=== PATIENT | male | born 1970 | race Caucasian/White ===

== ENCOUNTER 2016-11-25 13:35 | Emergency (ER) | payer BC, OTHER ==
[~2016-11-25] VITALS: Ht 177.8 cm; Wt 83.5 kg
[2016-11-25] MEDS ORDERED: PROPARACAINE OPHTH 0.5%, 15ML ONE (14:10)
[2016-11-25] MEDS ORDERED: FLUORESCEIN OPHTHALMIC 1 MG STRIP ONE (14:11)
[2016-11-25] MEDS ORDERED: KETOROLAC 30 MG/1 ML ONE (15:30)
[2016-11-25] MEDS ORDERED: METHOCARBAMOL 750 MG TABLET ONE (15:30)
[2016-11-25] MEDS ORDERED: SODIUM CHLORIDE 0.9% 1,000ML IVBOLUS ONE (15:30)
[2016-11-25 15:43] LABS: ASPARTATE AMINO TRANSFERASE 19 U/L (15-37); BLOOD UREA NITROGEN 10 mg/dL (7-18)
[2016-11-25 17:21] VITALS: BP 117/79
== END 2016-11-25 17:23 | disposition home or self-care (01) ==
LOC: ED 14:27
DX: H10.11 Acute atopic conjunctivitis, right eye (principal); E11.65 Type 2 diabetes mellitus with hyperglycemia; Z87.891 Personal history of nicotine dependence
CPT/HCPCS: 36415; 80053; 82010; 82962; 85025; 96360; 96361; 99285; J7030

== ENCOUNTER 2019-02-24 09:44 | Outpatient (CLI) | payer BC | END 2019-02-24 23:59 | disposition home or self-care (01) | LOC: CFH 09:44 | PROVIDERS: ATTEND Internal Medicine Cardiovascular Disease | DX: I35.0 Nonrheumatic aortic (valve) stenosis (principal); E11.9 Type 2 diabetes mellitus without complications | CPT/HCPCS: 93306 ==

== ENCOUNTER 2021-02-07 21:53 | Inpatient (IN) | payer BC, OTHER ==
[~2021-02-07] VITALS: Ht 177.8 cm; Wt 74.1 kg
--- NOTE | 2021-02-07 22:30 | NUR ---
TASK RN: PIV PLACED, LABS DRAWN AND SENT TO LAB WITH LAB SLIP. Addendum: 02/07/21 at 2242 by SABINE ONE SET BLOOD CX COLLECTED AND SENT TO LAB
--- NOTE | 2021-02-07 22:33 | NUR ---
TASK RN: PT PLACED ON 4L OXYGEN VIA NC. PT OXYGEN 91%. PT C/O NAUSEA, COUGH, REGULATING TEMP SINCE JANUARY 30. HX DM2, HTN, PT NOT TAKING MEDS AT THIS TIME, JUST GOT INSURANCE AGAIN. ERMD AT BEDSIDE FOR ASSESSMENT. REPORT TO PRIMARY RN.
[2021-02-07 22:40] LABS: BASOPHILS % (AUTO) 0 % (0-1); EOSINOPHILS % (AUTO) 0 % (1-7); LYMPHOCYTES % (AUTO) 6 % (22-44); MEAN CORPUSCULAR HEMOGLOBIN 30.2 pg (27.5-34.5); MEAN CORPUSCULAR HGB CONC 34.3 g/dL (33.2-36.2); MEAN PLATELET VOLUME 8.9 fL (7.4-10.4); MONOCYTES % (AUTO) 12 % (2-9); NEUTROPHILS % (AUTO) 82 % (42-75); PLATELET COUNT 154 x10^3/uL (130-400); RED CELL DISTRIBUTION WIDTH 12.4 % (9.4-14.8)
[2021-02-07] MEDS ORDERED: CEFTRIAXONE 1,000 MG in DEXTROSE 5% 50 ML IVPB ONE (23:00)
[2021-02-07] MEDS ORDERED: AZITHROMYCIN 500 MG in SODIUM CHLORIDE 0.9% 250 ML IVPB ONE (23:00)
--- NOTE | 2021-02-07 23:10 | NUR ---
Pt placed on Optiflow by RT, reports improvement of breathing while on respirory tx
[2021-02-07 23:18] LABS: ALBUMIN 2.9 g/dL (3.4-5.0); CALCIUM 8.4 mg/dL (8.5-10.1)
[2021-02-07 23:24] LABS: ALKALINE PHOSPHATASE 68 U/L (45-117); BILIRUBIN,TOTAL 0.8 mg/dL (0.2-1.0); CREATININE 1.63 mg/dL (0.7-1.3); TOTAL PROTEIN 7.8 g/dL (6.4-8.2); TROPONIN I < 0.015 ng/mL (0.000-0.045)
[2021-02-07 23:33] LABS: ALANINE AMINOTRANSFERASE 350 U/L (12-78); ANION GAP 8 mmol/L (5-15); CHLORIDE 96 mmol/L (98-107)
[2021-02-07] MEDS ORDERED: ONDANSETRON 2MG/ML, 2ML ONE (23:52)
[2021-02-08] MEDS ORDERED: ONDANSETRON 2MG/ML, 2ML IVPush ONE
[2021-02-08] MEDS ORDERED: NPH,100V5 SQ-INSULIN (00:25)
[2021-02-08] MEDS ORDERED: ALBUTEROL-IPRATROPIUM MDI INH INH PRN (00:30)
[2021-02-08] MEDS ORDERED: POLYETHYLENE GLYCOL 17 GM PACKET PO PRN (00:30)
[2021-02-08] MEDS ORDERED: ONDANSETRON 2MG/ML, 2ML IVPush PRN (00:30)
[2021-02-08] MEDS ORDERED: HYDROmorphone 2 MG/ML, 1ML IVPush PRN (00:30)
[2021-02-08] MEDS ORDERED: LABETALOL 5MG/ML, 20ML IVPush PRN (00:30)
--- NOTE | 2021-02-08 01:18 | NUR ---
report to [facility] CASTRO
[2021-02-08 02:04] VITALS: BP 143/77
[2021-02-08] MEDS ORDERED: INSULIN LISPRO 100 UNITS/ML, PEN SQ-INSULIN SCH (03:30)
[2021-02-08] MEDS: ACETAMINOPHEN 325 MG TABLET PO PRN ×2 (04:28→21:56)
[2021-02-08 05:31] LABS: BASOPHILS % (AUTO) 0 % (0-1); EOSINOPHILS % (AUTO) 0 % (1-7); LYMPHOCYTES % (AUTO) 8 % (22-44); MEAN CORPUSCULAR HEMOGLOBIN 30.2 pg (27.5-34.5); MEAN CORPUSCULAR HGB CONC 34.9 g/dL (33.2-36.2); MEAN PLATELET VOLUME 9.1 fL (7.4-10.4); MONOCYTES % (AUTO) 12 % (2-9); NEUTROPHILS % (AUTO) 80 % (42-75); PLATELET COUNT 142 x10^3/uL (130-400); RED CELL DISTRIBUTION WIDTH 12.1 % (9.4-14.8)
[2021-02-08 05:40] LABS: ANION GAP 6 mmol/L (5-15); CALCIUM 8.2 mg/dL (8.5-10.1); CHLORIDE 98 mmol/L (98-107)
[2021-02-08 05:42] LABS: CREATININE 1.44 mg/dL (0.7-1.3)
[2021-02-08 06:46] VITALS: BP 111/69
[2021-02-08] MEDS ORDERED: ALBUTEROL-IPRATROPIUM MDI INH INH SCH (09:00)
[2021-02-08] MEDS: INSULIN LISPRO 100 UNITS/ML, PEN SQ-INSULIN SCH ×4 (09:07→21:57)
[2021-02-08] MEDS: GUAIFENESIN/DM 200-20MG, 10ML UDC PO PRN (12:15)
[2021-02-08 12:30] VITALS: BP 129/73
[2021-02-08] MEDS ORDERED: DEXAMETHASONE 4 MG/ML, 1ML IVPush ONE (12:47)
[2021-02-08] MEDS ORDERED: methylPREDNISolone SOD SUCC 40 MG/ML IVPush SCH (15:00)
[2021-02-08] MEDS: ENOXAPARIN 40 MG/0.4 ML SQ SCH (16:26)
[2021-02-08 20:12] VITALS: BP 119/72
[2021-02-08] MEDS: MELATONIN 5 MG TABLET PO PRN (21:56)
[2021-02-08] MEDS: CEFTRIAXONE 2 GM in DEXTROSE 5% 50 ML IVPB SCH (23:22)
[2021-02-08] MEDS: AZITHROMYCIN 500 MG TABLET PO SCH (23:22)
[2021-02-09 00:45] VITALS: BP 116/73
[2021-02-09 05:42] LABS: HCT (SEDRATE) 38.9 % (39.2-51.8)
[2021-02-09 05:43] LABS: BASOPHILS % (AUTO) 0 % (0-1); EOSINOPHILS % (AUTO) 0 % (1-7); LYMPHOCYTES % (AUTO) 5 % (22-44); MEAN CORPUSCULAR HEMOGLOBIN 30.3 pg (27.5-34.5); MEAN CORPUSCULAR HGB CONC 34.4 g/dL (33.2-36.2); MEAN PLATELET VOLUME 8.9 fL (7.4-10.4); MONOCYTES % (AUTO) 9 % (2-9); NEUTROPHILS % (AUTO) 86 % (42-75); PLATELET COUNT 193 x10^3/uL (130-400); RED BLOOD COUNT 4.39 x10^6/uL (4.38-5.82); RED CELL DISTRIBUTION WIDTH 12.4 % (9.4-14.8)
[2021-02-09 05:57] LABS: ALBUMIN 2.3 g/dL (3.4-5.0); ANION GAP 7 mmol/L (5-15); CALCIUM 8.7 mg/dL (8.5-10.1); CHLORIDE 100 mmol/L (98-107)
[2021-02-09 06:00] LABS: ALANINE AMINOTRANSFERASE 214 U/L (12-78); ALKALINE PHOSPHATASE 66 U/L (45-117); BILIRUBIN,TOTAL 0.5 mg/dL (0.2-1.0); CREATININE 1.31 mg/dL (0.7-1.3); TOTAL PROTEIN 7.2 g/dL (6.4-8.2)
[2021-02-09] MEDS ORDERED: REMDESIVIR 200 MG in SODIUM CHLORIDE 0.9% 250 ML IVPB ONE (07:30)
[2021-02-09 08:14] LABS: D-DIMER 0.79 ug/mlFEU (0.00-0.52)
[2021-02-09] MEDS: INSULIN LISPRO 100 UNITS/ML, PEN SQ-INSULIN SCH ×4 (08:29→21:40)
[2021-02-09] MEDS: DEXAMETHASONE 4 MG/ML, 1ML IVPush SCH (08:29)
[2021-02-09] MEDS: AZITHROMYCIN 500 MG TABLET PO SCH (08:29)
[2021-02-09 08:37] VITALS: BP 122/77
[2021-02-09 09:22] LABS: FIBRINOGEN > 713 mg/dL (200-340)
[2021-02-09] MEDS ORDERED: DEXAMETHASONE 4 MG/ML, 1ML IVPush SCH ×2 (10:00)
[2021-02-09] MEDS: ENOXAPARIN 40 MG/0.4 ML SQ SCH (16:13)
[2021-02-09] MEDS: ASCORBIC ACID 250 MG TAB PO SCH (16:14)
[2021-02-09 16:15] VITALS: BP 123/76
[2021-02-09 20:10] VITALS: BP 125/71
[2021-02-09] MEDS: MELATONIN 5 MG TABLET PO PRN (21:40)
[2021-02-09] MEDS: ACETAMINOPHEN 325 MG TABLET PO PRN (21:40)
[2021-02-09] MEDS: GUAIFENESIN/DM 200-20MG, 10ML UDC PO PRN (21:41)
[2021-02-09] MEDS: CEFTRIAXONE 2 GM in DEXTROSE 5% 50 ML IVPB SCH (23:07)
[2021-02-10 00:54] VITALS: BP 119/67
[2021-02-10 05:20] LABS: HCT (SEDRATE) 39.7 % (39.2-51.8)
[2021-02-10 05:24] LABS: BASOPHILS % (AUTO) 0 % (0-1); EOSINOPHILS % (AUTO) 0 % (1-7); LYMPHOCYTES % (AUTO) 3 % (22-44); MEAN CORPUSCULAR HGB CONC 34.5 g/dL (33.2-36.2); MEAN PLATELET VOLUME 8.8 fL (7.4-10.4); MONOCYTES % (AUTO) 7 % (2-9); NEUTROPHILS % (AUTO) 90 % (42-75); PLATELET COUNT 210 x10^3/uL (130-400); RED BLOOD COUNT 4.46 x10^6/uL (4.38-5.82); RED CELL DISTRIBUTION WIDTH 12.4 % (9.4-14.8)
[2021-02-10 05:37] LABS: CHLORIDE 103 mmol/L (98-107)
[2021-02-10 05:45] LABS: ALANINE AMINOTRANSFERASE 146 U/L (12-78); ALBUMIN 2.1 g/dL (3.4-5.0); ALKALINE PHOSPHATASE 59 U/L (45-117); ANION GAP 5 mmol/L (5-15); BILIRUBIN,TOTAL 0.3 mg/dL (0.2-1.0); CALCIUM 8.8 mg/dL (8.5-10.1); CREATININE 1.15 mg/dL (0.7-1.3); TOTAL PROTEIN 6.5 g/dL (6.4-8.2)
[2021-02-10 05:48] LABS: D-DIMER 0.83 ug/mlFEU (0.00-0.52)
[2021-02-10 05:49] LABS: C-REACTIVE PROTEIN, QUANT 9.7 mg/dL (0.02-0.49)
[2021-02-10 05:50] LABS: FIBRINOGEN > 713 mg/dL (200-340)
[2021-02-10 07:42] VITALS: BP 129/80
[2021-02-10] MEDS: AZITHROMYCIN 500 MG TABLET PO SCH (08:56)
[2021-02-10] MEDS: INSULIN LISPRO 100 UNITS/ML, PEN SQ-INSULIN SCH ×4 (08:56→21:33)
[2021-02-10] MEDS: ZINC SULFATE 220 MG CAPSULE PO SCH (08:56)
[2021-02-10] MEDS: ASCORBIC ACID 250 MG TAB PO SCH ×2 (08:56→15:33)
[2021-02-10] MEDS: CHOLECALCIFEROL 5,000u TAB PO SCH (08:56)
[2021-02-10] MEDS: DEXAMETHASONE 4 MG/ML, 1ML IVPush SCH (08:57)
[2021-02-10] MEDS: INSULIN GLARGINE 100 UNITS/ML, PEN SQ-INSULIN SCH ×2 (10:17→21:33)
[2021-02-10] MEDS: REMDESIVIR 100 MG in SODIUM CHLORIDE 0.9% 250 ML IVPB SCH (11:12)
[2021-02-10 13:59] VITALS: BP 122/76
[2021-02-10] MEDS: ENOXAPARIN 40 MG/0.4 ML SQ SCH (15:31)
[2021-02-10 20:00] VITALS: BP 128/83
[2021-02-10] MEDS: ACETAMINOPHEN 325 MG TABLET PO PRN (21:33)
[2021-02-10] MEDS: GUAIFENESIN/DM 200-20MG, 10ML UDC PO PRN (21:34)
[2021-02-10] MEDS: MELATONIN 5 MG TABLET PO PRN (21:34)
[2021-02-11 01:28] VITALS: BP 132/88
[2021-02-11 05:26] LABS: BASOPHILS % (AUTO) 0 % (0-1); EOSINOPHILS % (AUTO) 0 % (1-7); LYMPHOCYTES % (AUTO) 5 % (22-44); MEAN CORPUSCULAR HEMOGLOBIN 30.5 pg (27.5-34.5); MEAN CORPUSCULAR HGB CONC 34.3 g/dL (33.2-36.2); MEAN PLATELET VOLUME 8.9 fL (7.4-10.4); MONOCYTES % (AUTO) 8 % (2-9); NEUTROPHILS % (AUTO) 87 % (42-75); PLATELET COUNT 251 x10^3/uL (130-400); RED BLOOD COUNT 4.53 x10^6/uL (4.38-5.82); RED CELL DISTRIBUTION WIDTH 12.5 % (9.4-14.8)
[2021-02-11 05:27] LABS: HCT (SEDRATE) 40.3 % (39.2-51.8)
[2021-02-11 05:42] LABS: CHLORIDE 103 mmol/L (98-107)
[2021-02-11 05:54] LABS: ALANINE AMINOTRANSFERASE 118 U/L (12-78); ALBUMIN 2.1 g/dL (3.4-5.0); ALKALINE PHOSPHATASE 62 U/L (45-117); ANION GAP 6 mmol/L (5-15); BILIRUBIN,TOTAL 0.4 mg/dL (0.2-1.0); CALCIUM 8.4 mg/dL (8.5-10.1); CREATININE 0.98 mg/dL (0.7-1.3); TOTAL PROTEIN 6.5 g/dL (6.4-8.2)
[2021-02-11] MEDS: INSULIN LISPRO 100 UNITS/ML, PEN SQ-INSULIN SCH ×4 (07:28→21:37)
[2021-02-11] MEDS: INSULIN GLARGINE 100 UNITS/ML, PEN SQ-INSULIN SCH ×2 (07:59→21:38)
[2021-02-11 08:00] VITALS: BP 109/67
[2021-02-11] MEDS: CHOLECALCIFEROL 5,000u TAB PO SCH (08:11)
[2021-02-11] MEDS: ZINC SULFATE 220 MG CAPSULE PO SCH (08:11)
[2021-02-11] MEDS: ASCORBIC ACID 250 MG TAB PO SCH ×2 (08:11→17:32)
[2021-02-11] MEDS: ACETAMINOPHEN 325 MG TABLET PO PRN (08:12)
[2021-02-11] MEDS: DEXAMETHASONE 4 MG/ML, 1ML IVPush SCH (08:13)
[2021-02-11 08:24] LABS: FIO2 100 %; O2 FLOW 50 L/min
[2021-02-11] MEDS: CALCIUM CARBONATE 500 MG TAB.CHEW PO PRN (09:48)
[2021-02-11] MEDS: ENOXAPARIN 40 MG/0.4 ML SQ SCH ×2 (09:49→21:37)
[2021-02-11] MEDS: REMDESIVIR 100 MG in SODIUM CHLORIDE 0.9% 250 ML IVPB SCH (09:55)
[2021-02-11] MEDS ORDERED: FUROSEMIDE 20 MG/2 ML IV ONE (10:00)
[2021-02-11] MEDS: AZITHROMYCIN 500 MG in SODIUM CHLORIDE 0.9% 250 ML IV SCH (12:01)
[2021-02-11] MEDS: CEFTRIAXONE 2 GM in DEXTROSE 5% 50 ML IVPB SCH (13:04)
[2021-02-11] MEDS: FUROSEMIDE 20 MG/2 ML IV SCH (17:31)
[2021-02-11] MEDS: GUAIFENESIN 100 MG/5 ML, 5ML UDC PO PRN (23:49)
[2021-02-12] MEDS: LORazepam 0.5MG TABLET PO PRN (03:52)
[2021-02-12 04:56] LABS: ALBUMIN 2.2 g/dL (3.4-5.0); ANION GAP 7 mmol/L (5-15); CALCIUM 8.6 mg/dL (8.5-10.1); CHLORIDE 100 mmol/L (98-107)
[2021-02-12 05:00] LABS: ALANINE AMINOTRANSFERASE 107 U/L (12-78); ALKALINE PHOSPHATASE 75 U/L (45-117); BILIRUBIN,TOTAL 0.8 mg/dL (0.2-1.0); CREATININE 1.09 mg/dL (0.7-1.3); TOTAL PROTEIN 7.2 g/dL (6.4-8.2)
[2021-02-12] MEDS ORDERED: TOCILIZUMAB 600 MG in SODIUM CHLORIDE 0.9% 70 ML IVPB ONE (08:00)
[2021-02-12] MEDS: DEXAMETHASONE 4 MG/ML, 1ML IVPush SCH (08:31)
[2021-02-12] MEDS: FUROSEMIDE 20 MG/2 ML IV SCH ×2 (08:32→16:31)
[2021-02-12] MEDS: INSULIN LISPRO 100 UNITS/ML, PEN SQ-INSULIN SCH ×4 (08:38→20:25)
[2021-02-12] MEDS: INSULIN GLARGINE 100 UNITS/ML, PEN SQ-INSULIN SCH ×2 (08:39→20:26)
[2021-02-12] MEDS: ZINC SULFATE 220 MG CAPSULE PO SCH (08:39)
[2021-02-12] MEDS: ASCORBIC ACID 250 MG TAB PO SCH ×2 (08:39→16:31)
[2021-02-12] MEDS: ENOXAPARIN 40 MG/0.4 ML SQ SCH ×2 (08:39→20:24)
[2021-02-12] MEDS: THIAMINE 100MG TABLET PO SCH (08:39)
[2021-02-12] MEDS: CHOLECALCIFEROL 5,000u TAB PO SCH (08:40)
[2021-02-12] MEDS: GUAIFENESIN 100 MG/5 ML, 5ML UDC PO PRN (08:41)
[2021-02-12] MEDS: REMDESIVIR 100 MG in SODIUM CHLORIDE 0.9% 250 ML IVPB SCH (09:44)
[2021-02-12] MEDS: AZITHROMYCIN 500 MG in SODIUM CHLORIDE 0.9% 250 ML IV SCH (11:55)
[2021-02-12] MEDS: CEFTRIAXONE 2 GM in DEXTROSE 5% 50 ML IVPB SCH (13:15)
[2021-02-13 04:56] LABS: FIO2 100 %
[2021-02-13 05:09] LABS: ALANINE AMINOTRANSFERASE 83 U/L (12-78); ALBUMIN 1.9 g/dL (3.4-5.0); ANION GAP 7 mmol/L (5-15); CALCIUM 8.3 mg/dL (8.5-10.1); CHLORIDE 100 mmol/L (98-107)
[2021-02-13 05:12] LABS: ALKALINE PHOSPHATASE 70 U/L (45-117); BILIRUBIN,TOTAL 0.5 mg/dL (0.2-1.0); CREATININE 1.01 mg/dL (0.7-1.3); TOTAL PROTEIN 6.3 g/dL (6.4-8.2)
[2021-02-13] MEDS: GUAIFENESIN/DM 200-20MG, 10ML UDC PO PRN ×2 (05:18→16:44)
[2021-02-13] MEDS: FUROSEMIDE 20 MG/2 ML IV SCH (07:30)
[2021-02-13] MEDS: INSULIN LISPRO 100 UNITS/ML, PEN SQ-INSULIN SCH ×4 (07:31→21:18)
[2021-02-13] MEDS: ENOXAPARIN 40 MG/0.4 ML SQ SCH ×2 (07:32→21:02)
[2021-02-13] MEDS: REMDESIVIR 100 MG in SODIUM CHLORIDE 0.9% 250 ML IVPB SCH (07:32)
[2021-02-13] MEDS: THIAMINE 100MG TABLET PO SCH (07:32)
[2021-02-13] MEDS: ZINC SULFATE 220 MG CAPSULE PO SCH (07:32)
[2021-02-13] MEDS: DEXAMETHASONE 4 MG/ML, 1ML IVPush SCH (07:32)
[2021-02-13] MEDS: ASCORBIC ACID 250 MG TAB PO SCH ×2 (07:32→16:44)
[2021-02-13] MEDS: CHOLECALCIFEROL 5,000u TAB PO SCH (07:33)
[2021-02-13] MEDS: CALCIUM CARBONATE 500 MG TAB.CHEW PO PRN (07:36)
[2021-02-13] MEDS ORDERED: TOCILIZUMAB 600 MG in SODIUM CHLORIDE 0.9% 70 ML IVPB ONE (09:00)
[2021-02-13] MEDS ORDERED: INSULIN GLARGINE 100 UNITS/ML, PEN SQ-INSULIN SCH ×2 (09:00→21:00)
[2021-02-13] MEDS ORDERED: FUROSEMIDE 20 MG/2 ML IV ONE (09:00)
[2021-02-13] MEDS: OMEPRAZOLE 20 MG CAPSULE.DR PO SCH (09:36)
[2021-02-13] MEDS: AZITHROMYCIN 500 MG in SODIUM CHLORIDE 0.9% 250 ML IV SCH (12:12)
[2021-02-13] MEDS: CEFTRIAXONE 2 GM in DEXTROSE 5% 50 ML IVPB SCH (14:56)
[2021-02-13] MEDS: FUROSEMIDE 40 MG/4 ML IV SCH (21:02)
[2021-02-14] MEDS: LORazepam 0.5MG TABLET PO PRN ×3 (01:03→20:50)
[2021-02-14 05:33] LABS: CHLORIDE 100 mmol/L (98-107)
[2021-02-14] MEDS: OMEPRAZOLE 20 MG CAPSULE.DR PO SCH (05:38)
[2021-02-14] MEDS: GUAIFENESIN 100 MG/5 ML, 5ML UDC PO PRN (05:38)
[2021-02-14 05:43] LABS: ANION GAP 5 mmol/L (5-15); CALCIUM 8.6 mg/dL (8.5-10.1); CREATININE 1.07 mg/dL (0.7-1.3)
[2021-02-14] MEDS: INSULIN LISPRO 100 UNITS/ML, PEN SQ-INSULIN SCH ×4 (07:00→21:04)
[2021-02-14] MEDS: DEXAMETHASONE 4 MG/ML, 1ML IVPush SCH (08:21)
[2021-02-14] MEDS: ZINC SULFATE 220 MG CAPSULE PO SCH (08:22)
[2021-02-14] MEDS: FUROSEMIDE 40 MG/4 ML IV SCH ×2 (08:22→20:47)
[2021-02-14] MEDS: ENOXAPARIN 40 MG/0.4 ML SQ SCH ×2 (08:23→20:46)
[2021-02-14] MEDS: CHOLECALCIFEROL 5,000u TAB PO SCH (08:23)
[2021-02-14] MEDS: ASCORBIC ACID 250 MG TAB PO SCH ×2 (08:23→17:42)
[2021-02-14] MEDS: THIAMINE 100MG TABLET PO SCH (08:23)
[2021-02-14] MEDS: INSULIN GLARGINE 100 UNITS/ML, PEN SQ-INSULIN SCH ×2 (08:26→21:05)
[2021-02-14] MEDS: AZITHROMYCIN 500 MG in SODIUM CHLORIDE 0.9% 250 ML IV SCH (12:25)
[2021-02-14] MEDS: CEFTRIAXONE 2 GM in DEXTROSE 5% 50 ML IVPB SCH (12:26)
[2021-02-14] MEDS: GUAIFENESIN/DM 200-20MG, 10ML UDC PO PRN (22:22)
[2021-02-15 04:37] LABS: BASOPHILS % (AUTO) 0 % (0-1); EOSINOPHILS % (AUTO) 1 % (1-7); LYMPHOCYTES % (AUTO) 6 % (22-44); MEAN CORPUSCULAR HEMOGLOBIN 30.3 pg (27.5-34.5); MEAN CORPUSCULAR HGB CONC 34.5 g/dL (33.2-36.2); MEAN PLATELET VOLUME 8.5 fL (7.4-10.4); MONOCYTES % (AUTO) 9 % (2-9); NEUTROPHILS % (AUTO) 84 % (42-75); PLATELET COUNT 368 x10^3/uL (130-400); RED BLOOD COUNT 4.69 x10^6/uL (4.38-5.82); RED CELL DISTRIBUTION WIDTH 12.4 % (9.4-14.8)
[2021-02-15 04:52] LABS: ALANINE AMINOTRANSFERASE 61 U/L (12-78); ALBUMIN 2.2 g/dL (3.4-5.0); ANION GAP 4 mmol/L (5-15); CALCIUM 8.4 mg/dL (8.5-10.1); CHLORIDE 98 mmol/L (98-107)
[2021-02-15 04:55] LABS: ALKALINE PHOSPHATASE 73 U/L (45-117); BILIRUBIN,TOTAL 0.6 mg/dL (0.2-1.0); CREATININE 1.12 mg/dL (0.7-1.3)
[2021-02-15] MEDS: OMEPRAZOLE 20 MG CAPSULE.DR PO SCH (05:23)
[2021-02-15] MEDS: THIAMINE 100MG TABLET PO SCH (08:58)
[2021-02-15] MEDS: ZINC SULFATE 220 MG CAPSULE PO SCH (08:58)
[2021-02-15] MEDS: DEXAMETHASONE 4 MG/ML, 1ML IVPush SCH (08:58)
[2021-02-15] MEDS: FUROSEMIDE 40 MG/4 ML IV SCH ×2 (08:58→20:57)
[2021-02-15] MEDS: CHOLECALCIFEROL 5,000u TAB PO SCH (08:58)
[2021-02-15] MEDS: ASCORBIC ACID 250 MG TAB PO SCH ×2 (08:58→17:28)
[2021-02-15] MEDS: ENOXAPARIN 40 MG/0.4 ML SQ SCH ×2 (08:59→19:33)
[2021-02-15] MEDS: INSULIN LISPRO 100 UNITS/ML, PEN SQ-INSULIN SCH ×4 (09:03→20:58)
[2021-02-15] MEDS: INSULIN GLARGINE 100 UNITS/ML, PEN SQ-INSULIN SCH ×2 (09:05→21:00)
[2021-02-15] MEDS: CEFTRIAXONE 2 GM in DEXTROSE 5% 50 ML IVPB SCH (11:52)
[2021-02-15] MEDS: AZITHROMYCIN 500 MG in SODIUM CHLORIDE 0.9% 250 ML IV SCH (11:52)
[2021-02-15] MEDS: GUAIFENESIN/DM 200-20MG, 10ML UDC PO PRN (20:57)
[2021-02-15] MEDS: LORazepam 0.5MG TABLET PO PRN (20:57)
[2021-02-16 04:10] LABS: BASOPHILS % (AUTO) 0 % (0-1); EOSINOPHILS % (AUTO) 2 % (1-7); LYMPHOCYTES % (AUTO) 8 % (22-44); MEAN CORPUSCULAR HEMOGLOBIN 30.3 pg (27.5-34.5); MEAN CORPUSCULAR HGB CONC 34.5 g/dL (33.2-36.2); MEAN PLATELET VOLUME 8.7 fL (7.4-10.4); MONOCYTES % (AUTO) 11 % (2-9); NEUTROPHILS % (AUTO) 79 % (42-75); PLATELET COUNT 355 x10^3/uL (130-400); RED BLOOD COUNT 4.65 x10^6/uL (4.38-5.82); RED CELL DISTRIBUTION WIDTH 12.2 % (9.4-14.8)
[2021-02-16 04:16] LABS: ALANINE AMINOTRANSFERASE 60 U/L (12-78); ALBUMIN 2.3 g/dL (3.4-5.0); ANION GAP 5 mmol/L (5-15); CALCIUM 8.4 mg/dL (8.5-10.1); CHLORIDE 100 mmol/L (98-107)
[2021-02-16 04:18] LABS: ALKALINE PHOSPHATASE 71 U/L (45-117); BILIRUBIN,TOTAL 0.3 mg/dL (0.2-1.0); TOTAL PROTEIN 6.6 g/dL (6.4-8.2)
[2021-02-16 04:19] LABS: D-DIMER 2.48 ug/mlFEU (0.00-0.52)
[2021-02-16] MEDS: OMEPRAZOLE 20 MG CAPSULE.DR PO SCH (05:55)
[2021-02-16] MEDS: INSULIN LISPRO 100 UNITS/ML, PEN SQ-INSULIN SCH ×4 (08:08→21:30)
[2021-02-16] MEDS: ENOXAPARIN 40 MG/0.4 ML SQ SCH ×2 (08:09→20:13)
[2021-02-16] MEDS: ASCORBIC ACID 250 MG TAB PO SCH ×2 (08:09→17:36)
[2021-02-16] MEDS: ZINC SULFATE 220 MG CAPSULE PO SCH (09:00)
[2021-02-16] MEDS: THIAMINE 100MG TABLET PO SCH (09:01)
[2021-02-16] MEDS: CHOLECALCIFEROL 5,000u TAB PO SCH (09:01)
[2021-02-16] MEDS: DEXAMETHASONE 4 MG/ML, 1ML IVPush SCH (09:01)
[2021-02-16] MEDS: FUROSEMIDE 40 MG/4 ML IV SCH ×2 (09:01→20:13)
[2021-02-16] MEDS: INSULIN GLARGINE 100 UNITS/ML, PEN SQ-INSULIN SCH ×2 (09:02→21:30)
[2021-02-16] MEDS: AZITHROMYCIN 500 MG in SODIUM CHLORIDE 0.9% 250 ML IV SCH (12:02)
[2021-02-16] MEDS: CEFTRIAXONE 2 GM in DEXTROSE 5% 50 ML IVPB SCH (14:12)
[2021-02-16] MEDS: GUAIFENESIN/DM 200-20MG, 10ML UDC PO PRN (21:31)
[2021-02-16] MEDS: LORazepam 0.5MG TABLET PO PRN (21:31)
[2021-02-17 04:21] LABS: BASOPHILS % (AUTO) 0 % (0-1); EOSINOPHILS % (AUTO) 2 % (1-7); LYMPHOCYTES % (AUTO) 8 % (22-44); MEAN CORPUSCULAR HEMOGLOBIN 30.5 pg (27.5-34.5); MEAN CORPUSCULAR HGB CONC 34.4 g/dL (33.2-36.2); MEAN PLATELET VOLUME 8.4 fL (7.4-10.4); MONOCYTES % (AUTO) 12 % (2-9); NEUTROPHILS % (AUTO) 79 % (42-75); PLATELET COUNT 343 x10^3/uL (130-400); RED BLOOD COUNT 4.99 x10^6/uL (4.38-5.82); RED CELL DISTRIBUTION WIDTH 12.3 % (9.4-14.8)
[2021-02-17 04:28] LABS: ANION GAP 4 mmol/L (5-15); CALCIUM 8.4 mg/dL (8.5-10.1); CHLORIDE 100 mmol/L (98-107); CREATININE 1.05 mg/dL (0.7-1.3)
[2021-02-17] MEDS: OMEPRAZOLE 20 MG CAPSULE.DR PO SCH (06:17)
[2021-02-17] MEDS: INSULIN LISPRO 100 UNITS/ML, PEN SQ-INSULIN SCH ×4 (07:00→20:50)
[2021-02-17] MEDS: ASCORBIC ACID 250 MG TAB PO SCH ×2 (08:41→16:52)
[2021-02-17] MEDS: ZINC SULFATE 220 MG CAPSULE PO SCH (08:41)
[2021-02-17] MEDS: CHOLECALCIFEROL 5,000u TAB PO SCH (08:42)
[2021-02-17] MEDS: DEXAMETHASONE 4 MG/ML, 1ML IVPush SCH (08:42)
[2021-02-17] MEDS: THIAMINE 100MG TABLET PO SCH (08:42)
[2021-02-17] MEDS: ENOXAPARIN 40 MG/0.4 ML SQ SCH ×2 (08:44→20:49)
[2021-02-17] MEDS: FUROSEMIDE 40 MG/4 ML IV SCH ×2 (08:44→20:49)
[2021-02-17] MEDS ORDERED: INSULIN LISPRO 100 UNITS/ML, PEN SQ-INSULIN ONE (17:00)
[2021-02-17] MEDS ORDERED: INSULIN GLARGINE 100 UNITS/ML, PEN SQ-INSULIN SCH (21:00)
[2021-02-18 04:07] LABS: BASOPHILS % (AUTO) 0 % (0-1); EOSINOPHILS % (AUTO) 1 % (1-7); LYMPHOCYTES % (AUTO) 9 % (22-44); MEAN CORPUSCULAR HEMOGLOBIN 30.4 pg (27.5-34.5); MEAN CORPUSCULAR HGB CONC 34.3 g/dL (33.2-36.2); MEAN PLATELET VOLUME 8.4 fL (7.4-10.4); MONOCYTES % (AUTO) 11 % (2-9); NEUTROPHILS % (AUTO) 79 % (42-75); PLATELET COUNT 314 x10^3/uL (130-400); RED BLOOD COUNT 4.55 x10^6/uL (4.38-5.82); RED CELL DISTRIBUTION WIDTH 12.4 % (9.4-14.8)
[2021-02-18 04:16] LABS: ANION GAP 4 mmol/L (5-15); CALCIUM 8.5 mg/dL (8.5-10.1); CHLORIDE 100 mmol/L (98-107)
[2021-02-18] MEDS: OMEPRAZOLE 20 MG CAPSULE.DR PO SCH (06:01)
[2021-02-18] MEDS: INSULIN LISPRO 100 UNITS/ML, PEN SQ-INSULIN SCH ×3 (07:00→16:35)
[2021-02-18] MEDS: CHOLECALCIFEROL 5,000u TAB PO SCH (08:53)
[2021-02-18] MEDS: ZINC SULFATE 220 MG CAPSULE PO SCH (08:53)
[2021-02-18] MEDS: ASCORBIC ACID 250 MG TAB PO SCH ×2 (08:53→16:36)
[2021-02-18] MEDS: ENOXAPARIN 40 MG/0.4 ML SQ SCH (08:54)
[2021-02-18] MEDS: THIAMINE 100MG TABLET PO SCH (08:54)
[2021-02-18] MEDS: FUROSEMIDE 40 MG/4 ML IV SCH (08:54)
[2021-02-18] MEDS ORDERED: GLUCAGON 1 MG IM PRN (09:00)
[2021-02-18] MEDS ORDERED: DEXTROSE 50%, 50ML SYRINGE IVPush PRN (09:00)
[2021-02-18] MEDS ORDERED: INSULIN GLARGINE 100 UNITS/ML, PEN SQ-INSULIN SCH ×2 (09:00)
[2021-02-18] MEDS ORDERED: SODIUM CHLORIDE FLUSH 10ML SYR IVF SCH (09:00)
[2021-02-18] MEDS ORDERED: DEXTROSE 4 GM TAB.CHEW PO PRN (09:00)
[2021-02-18] MEDS ORDERED: ACET325T26 PO (09:03)
[2021-02-18] MEDS ORDERED: LORA-445 PO (09:03)
[2021-02-18] MEDS ORDERED: GUAI5SYR PO (09:03)
[2021-02-18] MEDS ORDERED: FURO10VI37 IV (09:03)
[2021-02-18] MEDS ORDERED: CALC200T24 PO (09:03)
[2021-02-18] MEDS ORDERED: INSU100I11 SQ-INSULIN (09:03)
[2021-02-18] MEDS ORDERED: MELA5TAB14 PO (09:03)
[2021-02-18] MEDS ORDERED: CHOL500045 PO (09:03)
[2021-02-18] MEDS ORDERED: ENOX40SY4 SQ (09:03)
[2021-02-18] MEDS ORDERED: Albuterol-Ipratropium Mdi INH (09:03)
[2021-02-18] MEDS ORDERED: INSU100I13 SQ-INSULIN (09:03)
[2021-02-18] MEDS ORDERED: ASCO250T12 PO (09:03)
[2021-02-18] MEDS ORDERED: ZINC220C8 PO (09:03)
[2021-02-18] MEDS ORDERED: ONDA4VIA60 IVPush (09:03)
[2021-02-18] MEDS ORDERED: THIA100T67 PO (09:03)
[2021-02-18] MEDS ORDERED: OMNIPAQUE 350 MG/ML, 100ML BOTTLE ONE (11:09)
[2021-02-18 13:55] VITALS: BP 126/87
[2021-02-18] MEDS ORDERED: ASCORBIC ACID 500 MG TABLET ONE (16:16)
== END 2021-02-18 18:42 | disposition short-term general hospital (02) | DRG 871 ==
LOC: ED 22:49 → EDIP 02-08 00:27 → 4EST 02-08 01:50 → CCU 02-11 09:06 → 4WST 02-18 13:40
PROVIDERS: ADMIT Internal Medicine; ATTEND Internal Medicine
PROC: XW033H5 Introduction of Tocilizumab into Peripheral Vein, Percutaneous Approach, New Technology Group 5 (ICD-10-PCS; principal; 2021-02-12)
DX: A41.89 Other specified sepsis (principal); I50.33 Acute on chronic diastolic (congestive) heart failure; J12.82 Pneumonia due to coronavirus disease 2019; U07.1 COVID-19; J96.01 Acute respiratory failure with hypoxia; E87.1 Hypo-osmolality and hyponatremia; R74.01 Elevation of levels of liver transaminase levels; E88.09 Other disorders of plasma-protein metabolism, not elsewhere classified; E11.65 Type 2 diabetes mellitus with hyperglycemia; F41.9 Anxiety disorder, unspecified; I11.0 Hypertensive heart disease with heart failure; T38.0X5A Adverse effect of glucocorticoids and synthetic analogues, initial encounter; Z79.4 Long term (current) use of insulin; Z85.828 Personal history of other malignant neoplasm of skin; Z91.19 Patient's noncompliance with other medical treatment and regimen; Z79.899 Other long term (current) drug therapy; Y92.89 Other specified places as the place of occurrence of the external cause
CPT/HCPCS: 36415; 36600; 71045; 71275; 80048; 80053; 82728; 82803; 82947; 82962; 83036; 83605; 83615; 83735; 83880; 84100; 84145; 84484; 85025; 85379; 85384; 85651; 86140; 87040; 87081; 93005; 93970; 94660; 96365; 96367; 96375; G0378; J0456; J0696; J1100; J1650; J1940; J2405; Q9967; U0005; J1815; J3262; J7050; U0003